=== PATIENT | male | born 1955 | race Two or more races ===

== ENCOUNTER → 2019-08-14 | Outpatient (CLI) | payer OTHER, MEDICARE ==
[~2019-08-14] VITALS: Ht 182.9 cm; Wt 124.7 kg
[~2019-08-14] MED LIST: ADENOSINE 90 MG/30 ML INJ IV ONE
== END | disposition home or self-care (01) ==
LOC: Rad HDHVI 13:02
PROVIDERS: ATTEND Internal Medicine
DX: I35.8 Other nonrheumatic aortic valve disorders (principal); R06.02 Shortness of breath; R42 Dizziness and giddiness; R07.89 Other chest pain; E11.9 Type 2 diabetes mellitus without complications; I10 Essential (primary) hypertension; E78.00 Pure hypercholesterolemia, unspecified
CPT/HCPCS: 78452; 93005; 93306; 96374; 96375; A9500; J0153

== ENCOUNTER 2024-04-11 06:00 | Day surgery (SDC) | payer MEDICARE, OTHER ==
[2024-04-09 13:19] LABS: Urine Bacteria None Seen /hpf (None Seen)
[2024-04-09 13:24] LABS: Basophils # (auto) 0.1 10 ^3/uL (0-0.2); Basophils % (auto) 0.9 % (0.0-2.0); Eosinophils # (auto) 0.1 10 ^3/uL (0-0.8); Eosinophils % (auto) 2.3 % (0.0-7.0); Hematocrit 40.7 % (41.0-53.0); Hemoglobin 14.4 g/dL (13.5-17.5); Lymphocytes # (auto) 1.7 10 ^3/uL (0.4-5.4); Lymphocytes % (auto) 26.2 % (10.0-50.0); Mean Corpuscular Hemoglobin 33.3 pg (28.0-32.0); Mean Corpuscular Hgb Conc. 35.5 g/dL (32.0-36.0); Monocytes # (auto) 0.6 10 ^3/uL (0-1.3); Monocytes % (auto) 8.6 % (0.0-12.0); Neutrophils # (auto) 4.1 10 ^3/uL (1.6-8.6); Nucleated Red Blood Cells % 0.1 %; Platelet Count (auto) 243 10^3/uL (140-450); Red Blood Cells 4.33 10^6/uL (4.5-5.90); White Blood Cell 6.6 10^3/uL (4.4-10.8)
[2024-04-09 13:38] LABS: Urine Blood Negative /uL (Negative); Urine Clarity Clear (Clear); Urine Color Yellow (Yellow); Urine Protein, UAD Negative (Negative); Urine Specific Gravity 1.019 (1.001-1.035); Urine Urobilinogen Normal (Negative); Urine WBC 2 /hpf (0 - 3); Urine pH 5.5 (5.0-9.0)
[2024-04-09 13:51] LABS: INR 0.98 (0.9-1.15); Partial Thromboplastin Time 28.6 SEC (24.5-34.5); Prothrombin Time 10.4 sec (9.3-11.8)
[2024-04-09 14:07] LABS: Alanine Aminotransferase 49 U/L (7-40); Albumin 4.1 g/dL (3.2-4.8); Alkaline Phosphatase 95 U/L (46-116); Anion Gap 6 (5-15); Aspartate Aminotransferase 23 U/L (13-40); BUN/Creatinine Ratio 21.5 (10.0-20.0); Bilirubin, Total 0.9 mg/dL (0.2-1.0); Blood Urea Nitrogen 17 mg/dL (9-23); Calcium 9.5 mg/dL (8.7-10.4); Carbon Dioxide 27 mmol/L (20-30); Chloride 104 mmol/L (98-107); Glucose 108 mg/dL (74-106); Potassium 4.1 mmol/L (3.5-5.1); Sodium 137 mmol/L (136-145); Total Protein 6.2 g/dL (5.7-8.2)
[~2024-04-11] VITALS: Ht 182.9 cm; Wt 124.7 kg
[~2024-04-11 06:00] MED LIST changes: -ADENOSINE 90 MG/30 ML INJ IV ONE; +ALBUAER3 IN; +AMLO1TAB21 PO; +B-COCAP34 OR; +IBUP-1456 PO; +LABE200T33 PO; +LISI20TA60 PO; +LORA10CA PO; +MULT-1018 OR; +OMEG-20 PO; +OMEP20TA PO; +ROSU5TAB5 PO; +TAMS0.4C39 PO
[2024-04-11] MEDS ORDERED: ceFAZolin 2 GM/D5W50ml 50 ML IV ONE (06:46)
[2024-04-11] MEDS ORDERED: LIDOCAINE 2% JELLY 11ml (GLYDO) ONE (06:50)
[2024-04-11] MEDS ORDERED: BUPIVACAINE W/ EPINEPH 0.5% INJ 50ML MDV IJ ONE (06:50)
[2024-04-11] MEDS ORDERED: KETAMINE 50mg/ML 1ml syringe ONE ×2 (07:31→07:54)
[2024-04-11] MEDS ORDERED: PROPOFOL 10 MG/ML 20 ML IV ONE (07:32)
[2024-04-11] MEDS ORDERED: MIDAZOLAM HCL 2MG/2ML 2ml VIAL (1mg/ml) ONE (07:35)
[2024-04-11] MEDS ORDERED: fentaNYL CITRATE 100 MCG/2 ML VL ONE (07:35)
[2024-04-11] MEDS: ROPIVACAINE 0.5% (5MG/ML) 20ML AMPULE IJ ONE (08:00)
[2024-04-11] MEDS: BACITRACIN TOP OINT 1 UD PKG TOP ONE (08:06)
[2024-04-11] MEDS ORDERED: ONDANSETRON HCL 4 MG/2 ML VIAL IV ONE (08:15)
[2024-04-11] MEDS ORDERED: HYDROmorphone HCL 2 MG/ML VL/or syr IV PRN (08:15)
[2024-04-11 08:29] VITALS: PULSE 62; RESP 14; TEMP 97.7; O2SAT 99
[2024-04-11] MEDS: HYDROmorphone HCL 2 MG/ML VL/or syr IV ONE (09:10)
[2024-04-11 09:26] VITALS: BP 125/56; PULSE 60; RESP 15; O2SAT 61
== END 2024-04-11 09:50 | disposition home or self-care (01) ==
LOC: SUR 06:00
PROVIDERS: ATTEND Podiatrist Foot & Ankle Surgery
DX: M21.621 Bunionette of right foot (principal); M20.5X1 Other deformities of toe(s) (acquired), right foot; L90.5 Scar conditions and fibrosis of skin; L98.498 Non-pressure chronic ulcer of skin of other sites with other specified severity; J44.9 Chronic obstructive pulmonary disease, unspecified; E11.9 Type 2 diabetes mellitus without complications; I10 Essential (primary) hypertension; F17.210 Nicotine dependence, cigarettes, uncomplicated; Z83.3 Family history of diabetes mellitus; Z98.890 Other specified postprocedural states; Z96.653 Presence of artificial knee joint, bilateral; Z79.899 Other long term (current) drug therapy
CPT/HCPCS: 28113; 28820; 36415; 80053; 81001; 85025; 85610; 85730; 88305; 88311; J0690; J1170; J2250; J2704; J2795; J3010